=== PATIENT | male | born 2000 | race Caucasian/White ===

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

== ENCOUNTER 2020-03-19 15:00 | Outpatient (RCR) | payer BC, OTHER | END 2020-03-23 | disposition home or self-care (01) | LOC: PT | DX: G89.11 Acute pain due to trauma (principal) ==

== ENCOUNTER 2020-03-24 12:54 | Outpatient (RCR) | payer BC, OTHER | END 2020-04-02 15:00 | disposition home or self-care (01) | LOC: PT 12:54 | DX: G89.11 Acute pain due to trauma (principal) ==